=== PATIENT | male | born 1965 | race Caucasian/White ===

== ENCOUNTER 2025-01-25 03:39 | Emergency (ER) | payer MEDICAID, SELFPAY ==
[2025-01-25 03:41] VITALS: BMI 27.1
[2025-01-25 03:47] VITALS: BP 155/89; PULSE 81; RESP 19; TEMP 36.6; O2SAT 95
--- NOTE | 2025-01-25 04:02 | XR_ITS ---
Examination: Ribs, right, with PA chest, 5 views Technique: Chest PA, RIBS AP, RPO, LPO, AP coned lower ribs 5 views Exam date and time: January 25, 2025, 0414 hrs. Indications: Patient fell 4 days ago with injury to the right chest, right chest and rib pain Findings: Minor prominence left ventricle No pneumothorax Acute fractures right fourth and fifth ribs posteriorly with mild offset Impression: No pneumothorax pulmonary contusion or hemothorax Acute fractures right fourth and fifth ribs posteriorly
--- NOTE | 2025-01-25 04:02 | PD.EDRME ---
Rapid Medical Screening Exam [facility] Arrival date/time: 01/25/25 03:39 59M with history of HTN presents to ED with 1 day of worsening R-sided SOB. Patient fell on Thursday and went to [facility], where patient was found to multiple R-sided rib fractures. Patient denies new injury. Patient has been using his incentive spirometer. Chief Complaint: Shortness of Breath/Dyspnea Vital signs: Vital Signs Temperature 97.8 F 01/25/25 03:47 Pulse Rate 81 01/25/25 03:47 Respiratory Rate 19 01/25/25 03:47 Blood Pressure 155/89 H 01/25/25 03:47 Pulse Oximetry (%) 95 01/25/25 03:47 Oxygen Delivery Method Room Air 01/25/25 03:47
[2025-01-25 05:03] VITALS: BP 149/83; PULSE 77; RESP 18; O2SAT 99
--- NOTE | 2025-01-25 05:05 | PD.EDSOB ---
ED SOB =RME/HPI General Chief Complaint: Shortness of Breath/Dyspnea Stated Complaint: SOB Arrival date/time: 01/25/25 03:39 RME / HPI RME / HPI Narrative: 01/25/25 03:39 59M with history of HTN presents to ED with 1 day of worsening R-sided SOB. Patient fell on Thursday and went to [facility], where patient was found to multiple R-sided rib fractures. Patient denies new injury. Patient has been using his incentive spirometer. ------ Dr. Macias?s Main ED Evaluation: 59yo male presents to the ED for a chief complaint of worsening right rib pain. Patient was seen at [facility] a week and a half ago after he fell and was found to have at least 2 right rib fractures. Patient states he woke up tonight having worsening right rib pain and was unable to take a deep breathe. Patient denies any other associated symptoms. Denies any new injuries or trauma. Patient has been using his incentive spirometer as instructed. He has been wearing his shoulder immobilizer, but can't wear it at night due to being unable to sleep. He picked up his Aurora from the pharmacy yesterday and took a tablet 20 minutes ago with improvement of symptoms. NKA. Related Data Home Medications ?Medication ?Instructions ?Recorded ?Confirmed losartan 100 mg tablet 50 mg PO QDAY 11/11/17 11/02/18 pravastatin 20 mg tablet 20 mg PO QDAY 11/11/17 11/02/18 Previous Rx's ?Medication ?Instructions ?Recorded losartan 25 mg tablet 25 mg PO QDAY #30 tabs 11/02/18 Allergies Allergy/AdvReac Type Severity Reaction Status Date / Time No Known Allergies Allergy Verified 01/25/25 03:41 Review of Systems Review of Systems Systems Reviewed: All systems reviewed, normal except as documented Past Medical History Past Medical History NEUROLOGIC: Positive Neurological Disorders and Head Trauma; Negative Seizures CARDIAC: Positive Cardiac Disorders, Hypercholesterolemia (TAKES MED) and Hypertension; Negative Congestive Heart Failure RESPIRATORY: Positive Pneumonia; Negative Chronic Obstructive Pulmonary Disease (COPD) GASTROINTESTINAL: Negative Gastrointestinal Disorders GENITOURINARY: Negative Genitourinary Disorders or Renal Disease MUSCULOSKELETAL: Positive Fractures; Negative Musculoskeletal Disorders ENT: Positive Head Trauma ENDOCRINE: Negative Endocrine Disorders, Diabetes Mellitus Type 1 or Diabetes Mellitus Type 2 HEMATOLOGIC: Negative Blood Disorders OTHER HISTORY: Positive Hospitalization and Anesthesia Reactions; Negative Blood Transfusions or Blood Transfusion Reaction Family History FAMILY HISTORY: Positive Family Cardiac Disorders, Family Gastrointestinal Problems and Family Surgery Surgical History SURGICAL: Positive Tonsillectomy Social History SMOKING STATUS: Current every day smoker SUBSTANCE USE: marijuana ED Exam Narrative Physical exam: Generally patient is alert and oriented x 3 in no obvious distress heart regular rate and rhythm lungs clear to auscultation equal bilaterally abdomen soft bowel sounds present nondistended nontender chest wall shows contusion to the right upper chest and deformity to the medial edge of the right clavicle with swelling. No crepitance or subcu air. Neurologic exam Lorrie Coma Scale is 15 Course Quality Measures none Orders Category Date Time Status XR ribs RT min 3V w CXR1V Stat Exams 01/25/25 04:02 Taken Vital Signs Vital signs: Vital Signs Temperature 97.8 F 01/25/25 03:47 Pulse Rate 81 01/25/25 03:47 Respiratory Rate 19 01/25/25 03:47 Blood Pressure 155/89 H 01/25/25 03:47 Pulse Oximetry (%) 95 01/25/25 03:47 Oxygen Delivery Method Room Air 01/25/25 03:47 Shortness of Breath / Dyspnea MDM Narrative MDM Narrative:: Scribe Attestation: 01/25/25 - Gina Levine am scribing for and in the presence of Dr. Macias. Rib x-rays on the right side done here in the emergency room shows a right sided 4th and 5th rib fracture. No pneumothorax. Displaced medial edge of the clavicle. All of these injuries were noted when the patient was seen a week and a half ago at [facility] in [place]. Patient is to continue current medications. Follow-up with his orthopedic surgeon. Return as needed. Patient data External records reviewed:: [facility] previous records (Per chart review, patient was seen here on 01/17/22 for a headache.) Clinical information provided by:: patient Social determinants that could affect healthcare access:: none Patient has the following chronic illnesses:: HTN, HLD How is presenting disease/condition affected by chronic disease/condition?: uneffected by Evaluation data The following diagnostics were reviewed and interpreted by me:: radiology exam(s) Lab and/or radiology exams considered but not ordered:: none Interpretation Summary: See MDM narrative. Medications / Prescriptions Medications or Prescriptions considered but not ordered:: none Medication administrations:: none Consultations Consultation(s) initiated? (list below): No Diagnosis Shortness of Breath Differential Diagnosis: other (See MDM.) Most likely diagnosis given after review of the tests above:: see clinical impression below Admission Indicated Admission indicated?: not indicated Admission Request Was there a request for admission?: No Disposition Plan Disposition Plan: Discharge Discharge Attestation Discharge Attestation: The patient and all family members were given an opportunity to ask questions and understood the discharge instructions. Discharge instructions specifically effects, indications for sooner follow up or return to the emergency department, and the expected course of current diagnosis. Patient condition: Stable Discharge Plan Plan Patient Disposition: HOME (Self Care) Prescriptions/Referrals Prescriptions/Med Rec: No Action losartan 25 mg tablet 25 mg PO QDAY Qty: 30 0RF pravastatin 20 mg Tablet 20 mg PO QDAY losartan 100 mg Tablet 50 mg PO QDAY Referrals: Tyler Hardin MD [Primary Care Provider] - In 1 week Problem List Clinical Impression: Fracture, ribs, Closed dislocation of right clavicle Patient/Caregiver Discharge Instructions Education Materials: ED Rib Fracture Additional Instructions: Continue current medications. Follow-up with your doctor for orthopedic referral. Return to ER as needed or if condition worsens. Print Language: Ethiopian Stand Alone Forms: Hanna Award Info., Patient Portal Info Letter
== END 2025-01-25 05:27 | disposition home or self-care (01) ==
PROVIDERS: Emergency Provider Emergency Medicine; PCP Family Medicine
DX: S22.41XA Multiple fractures of ribs, right side, initial encounter for closed fracture (principal); S42.001A Fracture of unspecified part of right clavicle, initial encounter for closed fracture; W19.XXXA Unspecified fall, initial encounter; I10 Essential (primary) hypertension
CPT/HCPCS: 71101; 99283